=== PATIENT | male | born 1965 | race Asian ===

== ENCOUNTER 2017-10-10 00:28 | Emergency (ER) | payer BC ==
[~2017-10-10] VITALS: Ht 172.7 cm; Wt 81.6 kg
[2017-10-10 01:32] LABS: PLATELET COUNT 286 K/uL (142-355)
[2017-10-10 01:40] LABS: POTASSIUM 3.6 mmol/L (3.6-5.2)
[2017-10-10 03:42] VITALS: BP 150/79; TEMP 98.4
== END 2017-10-10 03:43 | disposition home or self-care (01) ==
LOC: ED 00:28
DX: K52.9 Noninfective gastroenteritis and colitis, unspecified (principal); F12.10 Cannabis abuse, uncomplicated
CPT/HCPCS: 36415; 74022; 80053; 80307; 81000; 85027; 96360; 96374; 99283; J1885; J2405; J7120

== ENCOUNTER 2021-12-31 08:24 | Outpatient (CLI) | payer BC | END 2021-12-31 18:47 | disposition home or self-care (01) | LOC: RAD 08:24 | PROVIDERS: ATTEND Nurse Practitioner Family | DX: M25.471 Effusion, right ankle (principal); M25.571 Pain in right ankle and joints of right foot ==